=== PATIENT | female | born 1970 | race Two or more races ===

== ENCOUNTER 2022-04-09 07:49 | Emergency (ER) | payer OTHER ==
[2022-04-09 08:40] VITALS: BP 131/79; PULSE 71; RESP 18; TEMP 97.9; BMI 29.5
[2022-04-09 10:11] LABS: EPI CELLS 20 /uL (0-25.1); HYALINE CASTS 0 /uL (0-3.1); URINE APPEARANCE CLEAR; URINE BACTERIA 218 /uL (0-1359); URINE BILIRUBIN NEGATIVE (NEGATIVE); URINE COLOR YELLOW; URINE GLUCOSE (UA) NEGATIVE (NEGATIVE); URINE KETONE NEGATIVE (NEGATIVE); URINE LEUK ESTERASE 2+ (NEGATIVE); URINE NITRITE NEGATIVE (NEGATIVE); URINE PROTEIN NEGATIVE (NEGATIVE); URINE RBC 12 /uL (0-23.9); URINE UROBILINOGEN 0.2 mg/dL (0.2-1.0); URINE WBC 55 /uL (0-25.8)
== END 2022-04-09 10:01 | disposition home or self-care (01) ==
LOC: JERFT 07:49 → JER 07:49 → JERFT 10:01
DX: N39.0 Urinary tract infection, site not specified (principal)
CPT/HCPCS: 81003; 87086; 99283-25